=== PATIENT | male | born 1990 | race Two or more races ===

== ENCOUNTER 2023-05-02 22:01 | Emergency (ER) | payer OTHER ==
[~2023-05-02] VITALS: Ht 175.3 cm; Wt 87.2 kg
[2023-05-02 22:33] VITALS: BP 123/64; PULSE 94; RESP 16; TEMP 100.8; O2SAT 96
== END 2023-05-03 03:39 | disposition left against medical advice (07) ==
LOC: ER 22:01
DX: R50.9 Fever, unspecified (principal); Z53.21 Procedure and treatment not carried out due to patient leaving prior to being seen by health care provider
CPT/HCPCS: 99281